=== PATIENT | female | born 2000 | race Caucasian/White ===

== ENCOUNTER → 2024-05-22 | Outpatient (CLI) | payer OTHER | END | disposition home or self-care (01) | LOC: LABWHC1 10:27 | PROVIDERS: ATTEND Obstetrics & Gynecology | DX: O20.0 Threatened abortion (principal); Z3A.00 Weeks of gestation of pregnancy not specified | CPT/HCPCS: 36415; 84702 ==

== ENCOUNTER 2024-07-27 15:16 | Observation (INO) | payer OTHER ==
--- NOTE | 2024-07-27 16:05 | ED ---
Female Urogenital HPI - General Chief complaint: Vaginal Bleeding Stated complaint: 17wks preg,vag bleeding Time Seen by Provider: 07/27/24 15:17 Source: EMS Mode of arrival: EMS Limitations: no limitations - History of Present Illness Initial comments: Patient is a 24 y/o female , 17 week gestation presenting for vaginal bleeding x 1 hour. Patient states that she was at home and she felt a gush of fluid. By the time she came to emergency room and she has been through 1 pad over the course of an hour. No passage of clots. No history of bleeding disorders. Prior to or delivery. Via . Patient did have spotting at 4 weeks with this otherwise no complications today. Sees Dr. Estrella. Denies lightheadedness, dizziness, shortness of breath, chest pain. Endorses mild lower pelvic cramping. No fevers. No history of STIs. Patient is RHD negative and did require RhoGAM injection at 4 weeks . - Related Data Home Medications Medication Instructions Recorded Confirmed Acetaminophen Tab [Tylenol Tab] 500 mg PO Q6HR PRN 07/27/24 07/27/24 Wlg-Qsco-Kolum Acid 1 cap PO DAILY 07/27/24 07/27/24 [-U Capsule (formulary)] Allergies Allergy/AdvReac Type Severity Reaction Status Date / Time No Known Allergies Allergy Verified 07/27/24 16:48 Review of Systems ROS Statement: Those systems with pertinent positive or pertinent negative responses have been documented in the HPI. Past Medical History Past Medical History: No Reported History History of Any Multi-Drug Resistant Organisms: None Reported Past Surgical History: No Surgical Hx Reported Past Psychological History: No Psychological Hx Reported Past Alcohol Use History: None Reported Past Drug Use History: None Reported - Past Family History Father Family Medical History: Hypertension Brother(s) Family Medical History: Seizure Disorder Additional Family Medical History / Comment(s): Epilepsy General Exam - General Exam Comments Initial Comments: PE: CONSTITUTIONAL: No apparent distress, well appearing SKIN: Warm, dry, no jaundice, hives or petechiae EYES: Pupils are equally round, extraocular movements intact without nystagmus, clear conjunctiva, no conjunctival pallor non-icteric sclera HENT: Normocephalic, atraumatic, moist mucus membranes, oropharynx clear without exudates NECK: , Full range of motion, normal appearance PULMONARY: Clear to auscultation without wheezes, rhonchi, or rales, normal excursion, no accessory muscle use and no stridor CARDIOVASCULAR: Regular rate, rhythm, normal S1 and S2. No appreciated murmurs, rubs or gallops. Strong radial pulses with intact distal perfusion. No lower extremity edema GASTROINTESTINAL: Soft, non-tender, non-distended, no palpable masses, no rebound or guarding. No hepatosplenomegaly GENITOURINARY: Pelvic exam performed withBriana RN cane splicer. Sterile speculum inserted, cervical os closed, approximately 1 tablespoon of blood and speculum MUSCULOSKELETAL: Extremities have no gross deformity, no edema, redness, or swelling. No calf swelling ot TTP. NEUROLOGIC:_a/o x 3, GCS 15, normal mentation and speech. Moves all extremities x 4 without motor or sensory deficit PSYCHIATRIC:_normal mood and affect, thought process is clear and linear Limitations: no limitations Course Vital Signs 07/27/24 07/27/24 15:17 21:00 Temperature 97.0 F L 97.6 F Pulse Rate 81 82 Respiratory 18 18 Rate Blood Pressure 133/70 96/84 O2 Sat by Pulse 100 99 Oximetry Medical Decision Making - Medical Decision Making Was pt. sent in by a medical professional or institution (, PA, STEAM FINISHER, urgent care, hospital, or group home...) When possible be specific @ -No Did you speak to anyone other than the patient for history (EMS, parent, family, police, friend...)? What history was obtained from this source @ -No Did you review nursing and triage notes (agree or disagree)? Why? @ -Triage note states patient comes to ED via EMS for bleeding during , patient 17 weeks intrauterine on RhoGAM injections for bleeding noted at 4 weeks gestation, patient reports pink-red blood after going to the bathroom states she can feel blood currently coming out of her vagina, reports cramping with just began Were old charts reviewed (outside hosp., previous admission, EMS record, old EKG, old radiological studies, urgent care reports/EKG's, group home records)? Report findings @ -No recent visits to review Differential Diagnosis (chest pain, altered mental status, abdominal pain women, abdominal pain men, vaginal bleeding, weakness, fever, dyspnea, syncope, headache, dizziness, GI bleed, back pain, seizure, CVA, palpatations, mental hea lth, musculoskeletal)? @Differential diagnosis remains broad however top considerations include spo ntaneous , threatened , molar , bloody show, incompetent cervix, placenta previa, dysfunctional uterine bleeding, this is an all-inclusive list. Patient exam is not consistent with placental abruption, patient has known intrauterine so very low suspicion for ectopic U/S interpreted by me (1pt. min.). @ -Single intrauterine present What testing was considered but not performed or refused? (CT, X-rays, U/S, labs)? Why? @ -None What meds were considered but not given or refused? Why? @ -None Did you discuss the management of the patient with other professionals (professionals i.e. , PA, STEAM FINISHER, lab, RT, psych nurse, drug abuse social worker, bacteriologist industrial, teacher, psychological operations officer, bilingual patient support caseworker)? Give summary @ Discussed with Dr. Oneill, Ob-Warping Mill Operator, regarding admission Was smoking cessation discussed for >3mins.? @ -No Was critical care preformed (if so, how long)? @ -No Were there social determinants of health that impacted care today? How? (Homelessness, low income, unemployed, alcoholism, drug addiction, transportation, low edu. Level, literacy, decrease access to med. care, alf, rehab)? @ -No Was there de-escalation of care discussed even if they declined (Discuss DNR or withdrawal of care, Hospice)? @ -No What co-morbidities impacted this encounter? (DM, HTN, Smoking, COPD, CAD, Cancer, CVA, ARF, Chemo, Hep., AIDS, mental health diagnosis, sleep apnea, morbid obesity)? @ -None Was patient admitted / discharged? Hospital course, mention meds given and route, prescriptions, significant lab abnormalities, going to OR and other pertinent info. @ -Hospital course Patient is a pleasant 24-year-old female 17 weeks gestation presenting for vaginal bleeding x 1 hour. Rh-. Pt well appearing on assessment, vitals stable, abdomen soft and nontender, no masses, pelvic exam performed with sterile speculum, showed closed cervical os, approx 1 tbsp dark red blood in speculum. Plan for US, labs, likely rhogam, tylenol. US with single live intrauterine , no placenta previa. Hgb wnl. On reassessment patient comfortable appearing, did pass an additional 1/2 to 1 cup of dark red blood. Updated patient to results and anticpated admission for observation due to persistent bleeding. Pt agreeable with POC. Discussed with Dr. Oneill, kindly accepts for admission, Admission orders placed. Pt admitted in stable condition. Additionally, Rh-, Rhogam ordered. Undiagnosed new problem with uncertain prognosis? @ -No Drug Therapy requiring intensive monitoring for toxicity (Heparin, Nitro, Insulin, Cardizem)? @ -No Were any procedures done? @ -No Diagnosis/symptom? @ Threatened Acute, or Chronic, or Acute on Chronic? @ -Acute Uncomplicated (without systemic symptoms) or Complicated (systemic symptoms)? @ -Complicated Side effects of treatment? @ -No Exacerbation, Progression, or Severe Exacerbation? @ -No Poses a threat to life or bodily function? How? (Chest pain, USA, NM, pneumonia, PE, COPD, DKA, ARF, appy, cholecystitis, CVA, Diverticulitis, Homicidal, Suicidal, threat to staff... and all critical care pts) @ -Potentially, if bleeding continues unmonitored or unaddressed could lead to hemorrhage and shock - Lab Data Result diagrams: 07/28/24 05:00 07/27/24 16:10 Lab Results 07/27/24 07/27/24 07/27/24 Range/Units 16:10 16:10 16:10 WBC 9.7 (3.8-10.6) k/uL RBC 4.33 (3.80-5.40) m/uL Hgb 12.3 (11.4-16.0) gm/dL Hct 35.4 (34.0-46.0) % MCV 81.9 (80.0-100.0) fL MCH 28.5 (25.0-35.0) pg MCHC 34.8 (31.0-37.0) g/dL RDW 13.9 (11.5-15.5) % Plt Count 275 (150-450) k/uL MPV 8.2 Neutrophils % 72 % Lymphocytes % 21 % Monocytes % 4 % Eosinophils % 2 % Basophils % 0 % Neutrophils # 6.9 (1.3-7.7) k/uL Lymphocytes # 2.0 (1.0-4.8) k/uL Monocytes # 0.4 (0-1.0) k/uL Eosinophils # 0.2 (0-0.7) k/uL Basophils # 0.0 (0-0.2) k/uL PT 10.5 (10.0-12.5) sec INR 0.9 (<1.2) APTT 28.5 (22.0-30.0) sec Sodium (137-145) mmol/L Potassium (3.5-5.1) mmol/L Chloride (98-107) mmol/L Carbon Dioxide (22-30) mmol/L Anion Gap mmol/L BUN (7-17) mg/dL Creatinine (0.52-1.04) mg/dL Est GFR (CKD-EPI)AfAm (>60 ml/min/1.73 sqM) Est GFR (CKD-EPI)NonAf (>60 ml/min/1.73 sqM) Glucose (74-99) mg/dL Calcium (8.4-10.2) mg/dL Total Bilirubin (0.2-1.3) mg/dL AST (14-36) U/L ALT (4-34) U/L Alkaline Phosphatase (38-126) U/L Total Protein (6.3-8.2) g/dL Albumin (3.5-5.0) g/dL HCG, Quant mIU/mL Urine Color Urine RBC >182 H (0-5) /hpf Urine WBC 55 H (0-5) /hpf Ur Squamous Epith Cells 6 H (0-4) /hpf Blood Type Blood Type Confirm Blood Type Recheck Bld Type Recheck Status Antibody Screen Spec Expiration Date 07/27/24 07/27/24 07/27/24 Range/Units 16:10 16:10 16:20 WBC (3.8-10.6) k/uL RBC (3.80-5.40) m/uL Hgb (11.4-16.0) gm/dL Hct (34.0-46.0) % MCV (80.0-100.0) fL MCH (25.0-35.0) pg MCHC (31.0-37.0) g/dL RDW (11.5-15.5) % Plt Count (150-450) k/uL MPV Neutrophils % % Lymphocytes % % Monocytes % % Eosinophils % % Basophils % % Neutrophils # (1.3-7.7) k/uL Lymphocytes # (1.0-4.8) k/uL Monocytes # (0-1.0) k/uL Eosinophils # (0-0.7) k/uL Basophils # (0-0.2) k/uL PT (10.0-12.5) sec INR (<1.2) APTT (22.0-30.0) sec Sodium 135 L (137-145) mmol/L Potassium 3.7 (3.5-5.1) mmol/L Chloride 106 (98-107) mmol/L Carbon Dioxide 18 L (22-30) mmol/L Anion Gap 11 mmol/L BUN 7 (7-17) mg/dL Creatinine 0.49 L (0.52-1.04) mg/dL Est GFR (CKD-EPI)AfAm >90 (>60 ml/min/1.73 sqM) Est GFR (CKD-EPI)NonAf >90 (>60 ml/min/1.73 sqM) Glucose 93 (74-99) mg/dL Calcium 9.4 (8.4-10.2) mg/dL Total Bilirubin 0.4 (0.2-1.3) mg/dL AST 13 L (14-36) U/L ALT 9 (4-34) U/L Alkaline Phosphatase 79 (38-126) U/L Total Protein 6.4 (6.3-8.2) g/dL Albumin 3.6 (3.5-5.0) g/dL HCG, Quant 76385.3 mIU/mL Urine Color Urine RBC (0-5) /hpf Urine WBC (0-5) /hpf Ur Squamous Epith Cells (0-4) /hpf Blood Type O Negative Blood Type Confirm O Negative Blood Type Recheck No Previous Record Bld Type Recheck Status CABO Indicated Antibody Screen NEGATIVE Spec Expiration Date 07/30/20242309 Disposition Clinical Impression: Threatened Disposition: ADMITTED IP TO THIS [facility] Condition: Good
[2024-07-27] MEDS: ACETAMINOPHEN TAB 500 MG TAB PO STA (16:15)
[2024-07-27] MEDS: SODIUM CHLORIDE 0.9% 1,000 ML IV ONE (16:15)
[2024-07-27 16:22] LABS: Basophils % (A) 0 %; Eosinophils # (A) 0.2 k/uL (0-0.7); Eosinophils % (A) 2 %; HCT 35.4 % (34.0-46.0); HGB 12.3 gm/dL (11.4-16.0); Lymphocytes % (A) 21 %; MCH 28.5 pg (25.0-35.0); MCHC 34.8 g/dL (31.0-37.0); MCV 81.9 fL (80.0-100.0); Mean Platelet Volume 8.2; Monocytes # (A) 0.4 k/uL (0-1.0); Monocytes % (A) 4 %; Neutrophils # (A) 6.9 k/uL (1.3-7.7); Neutrophils % (A) 72 %; Platelet Count 275 k/uL (150-450); RBC 4.33 m/uL (3.80-5.40); RDW 13.9 % (11.5-15.5); WBC 9.7 k/uL (3.8-10.6)
[2024-07-27 16:37] LABS: INR 0.9 (<1.2); Partial Thromboplastin Time 28.5 sec (22.0-30.0); Prothrombin Time 10.5 sec (10.0-12.5)
[2024-07-27 16:51] LABS: ALT 9 U/L (4-34); AST 13 U/L (14-36); African American GFR (CKD) >90 (>60 ml/min/1.73 sqM); Albumin 3.6 g/dL (3.5-5.0); Alkaline Phosphatase 79 U/L (38-126); Anion Gap 11 mmol/L; Blood Urea Nitrogen 7 mg/dL (7-17); Calcium 9.4 mg/dL (8.4-10.2); Carbon Dioxide 18 mmol/L (22-30); Chloride 106 mmol/L (98-107); Glucose 93 mg/dL (74-99); Non-African American GFR(CKD) >90 (>60 ml/min/1.73 sqM); Potassium 3.7 mmol/L (3.5-5.1); Sodium 135 mmol/L (137-145); Total Bilirubin 0.4 mg/dL (0.2-1.3); Total Protein 6.4 g/dL (6.3-8.2)
--- NOTE | 2024-07-27 17:01 | US ---
EXAMINATION TYPE: US OB >= 14 wk fetus DATE OF EXAM: 07/27/2024 COMPARISON: None CLINICAL INDICATION: Female, 24 years old with history of vaginal bleeding; vag bleeding x 2 hrs TECHNIQUE: Transabdominal (TA) GESTATIONAL AGE / DATING Physician Established: Not yet established Dates by LMP: (15 weeks/4 days) EDC: 01/14/25 Dates by First Scan: outside imaging Dates by Current Scan: (16 weeks/ 3 days) EDC: 01/08/25 Beta HCG (if available): Not available at this time SURVEY IUP: Single PLACENTA: Fundal PREVIA: No Previa HEATH: 8.3 cm Normal CERVICAL LENGTH (transabdominal: norm > 3.0cm): 3.5 cm BIOMETRY PRESENTATION: Breech LIE: Oblique BPD: 3.5 cm 16 weeks / 5 days HC: 11.7 cm 16 weeks / 0 days AC: 12.2 cm 17 weeks / 6 days FL: 1.8 cm 15 weeks / 1 days ESTIMATED WEIGHT IN GRAMS: 158.4 grams ESTIMATED WEIGHT IN LBS/OZ: 0 lbs. 6 oz. WEIGHT PERCENTAGE BASED ON ESTABLISHED DATES: 93.5% HC/AC: .99 Abnormal FL/AC: 14.4 out of range HEART RATE: 155 bpm RHYTHM: Normal biometry very limited by positioing and large maternal body habitus IMPRESSION: 1. Single viable intrauterine as described above. 2. No placenta previa. 3. presentation is breech. 4. This examination is not performed for evaluation of potential anomalies. anomalies can not be excluded with this technique.
[2024-07-27 17:35] LABS: HCG,Quantitative Serum 20782.3 mIU/mL
[2024-07-27 17:46] LABS: RBC,Urine >182 /hpf (0-5); Squamous Epithelial Cell,Urine 6 /hpf (0-4); WBC,Urine 55 /hpf (0-5)
[2024-07-27] MEDS: Rhogam IMMUNE GLOBULIN 1,500 UNIT/1 ML IM ONE (20:15)
[2024-07-27 21:31] VITALS: RESP 16
[2024-07-27] MEDS: DEXTROSE 5%-0.45% NACL 1,000 ML IV ONE (21:59)
[2024-07-27] MEDS: LACTATED RINGERS 1,000 ML IV SCH (22:00)
[2024-07-27] MEDS: ACETAMINOPHEN TAB 325 MG TAB PO PRN (22:12)
[2024-07-28 04:14] VITALS: BP 110/72; PULSE 93; TEMP 97.6
[2024-07-28 05:42] LABS: Basophils % (A) 0 %; Eosinophils # (A) 0.3 k/uL (0-0.7); Eosinophils % (A) 3 %; HCT 33.1 % (34.0-46.0); HGB 10.9 gm/dL (11.4-16.0); Lymphocytes # (A) 2.5 k/uL (1.0-4.8); Lymphocytes % (A) 30 %; MCH 27.9 pg (25.0-35.0); MCHC 33.1 g/dL (31.0-37.0); MCV 84.4 fL (80.0-100.0); Mean Platelet Volume 7.6; Monocytes # (A) 0.3 k/uL (0-1.0); Monocytes % (A) 4 %; Neutrophils # (A) 5.1 k/uL (1.3-7.7); Neutrophils % (A) 61 %; Platelet Count 251 k/uL (150-450); RBC 3.92 m/uL (3.80-5.40); RDW 13.9 % (11.5-15.5); WBC 8.3 k/uL (3.8-10.6)
[2024-07-28] MEDS: PRENATAL VIT-IRON-FOLIC ACID 1 EACH TABLET PO SCH (08:15)
--- NOTE | 2024-07-28 11:27 | P.HPOB ---
History of Present Illness H&P Date: 07/28/24 Chief Complaint: Vaginal bleeding in Ms. Gallagher is a 24 year old at 15 weeks and 5 days with EDC of 01/14/2025 who presents with an episode of heavy vaginal bleeding. This is her second bleed during the . While in the emergency room she saturated multiple pads. Her vitals were noted to be stable and her hemoglobin was in the normal range at 12.3. She is known to be Rh negative and her antibody screen yesterday was negative. She was given a dose of rhogam while in the ER. Cervix was closed per Dr. Anders's exam in the ER. Pelvic ultrasound was negative for retroplacental clot and for placenta previa. There was a single live fetus noted, measuring large (~17 weeks). However, the patient continued to bleed so the decision was made to observe her overnight. Past Medical History Past Medical History: No Reported History History of Any Multi-Drug Resistant Organisms: None Reported Past Surgical History: Section, Cholecystectomy Additional Past Surgical History / Comment(s): Gallbladder 03/2018, 01/2018 and 08/2021 Past Anesthesia/Blood Transfusion Reactions: No Reported Reaction Past Psychological History: No Psychological Hx Reported Smoking Status: Never smoker Past Alcohol Use History: None Reported Past Drug Use History: Marijuana Additional Drug Use History / Comment(s): Once a day - Past Family History Father Family Medical History: Hypertension Brother(s) Family Medical History: Seizure Disorder Additional Family Medical History / Comment(s): Epilepsy Medications and Allergies Home Medications Medication Instructions Recorded Confirmed Type Acetaminophen Tab [Tylenol Tab] 500 mg PO Q6HR PRN 07/27/24 07/27/24 History Eoh-Tfit-Qbarr Acid 1 cap PO DAILY 07/27/24 07/27/24 History [-U Capsule (formulary)] Allergies Allergy/AdvReac Type Severity Reaction Status Date / Time No Known Allergies Allergy Verified 07/27/24 16:48 Exam Vital Signs Temp Pulse Pulse Resp BP BP Pulse Ox 07/28/24 04:13 97.6 F 93 16 110/72 100 07/27/24 21:16 98.6 F 76 16 104/69 96 07/27/24 21:00 97.6 F 82 18 96/84 99 07/27/24 15:17 97.0 F L 81 18 133/70 100 Intake and Output 07/27/24 07/28/24 07/28/24 22:59 06:59 14:59 Output Total 2 Balance -2 Output: Output, Quantitative 2 Blood Loss Other: # Voids 1 2 Weight 104.78 kg Focused physical exam is performed. This is a healthy-appearing in no apparent distress. Breathing is non-labored. Abdomen is gravid and non-tender. Cervical exam is deferred, closed per Dr. Anders. Extremities non-tender and non-edematous. +FHTs on dopplers and by ultrasound. Results Result Diagrams: 07/28/24 05:00 07/27/24 16:10 Abnormal Lab Results - Last 24 Hours (Table) 07/27/24 07/27/24 07/28/24 Range/Units 16:10 16:10 05:00 Hgb 10.9 L (11.4-16.0) gm/dL Hct 33.1 L (34.0-46.0) % Sodium 135 L (137-145) mmol/L Carbon Dioxide 18 L (22-30) mmol/L Creatinine 0.49 L (0.52-1.04) mg/dL AST 13 L (14-36) U/L Urine RBC >182 H (0-5) /hpf Urine WBC 55 H (0-5) /hpf Ur Squamous Epith Cells 6 H (0-4) /hpf Assessment and Plan Assessment: 24 year old at 15 weeks and 5 days with second episode of vaginal bleeding in Plan: Admit for observation overnight. No previa or subchorionic hematoma noted on US. Trend Hgb.
--- NOTE | 2024-07-28 11:30 | P.DS ---
Providers Date of admission: 07/27/24 17:28 Expected date of discharge: 07/28/24 Attending physician: Michelle Oneill MD Primary care physician: Katherine Suresh DO Hospital Course: Ms. Gallagher is a 24 year old at 15 weeks and 5 days with EDC of 01/14/2025 who presents with an episode of heavy vaginal bleeding. This is her second bleed during the . While in the emergency room she saturated multiple pads. Her vitals were noted to be stable and her hemoglobin was in the normal range at 12.3. She is known to be Rh negative and her antibody screen yesterday was negative. She was given a dose of rhogam while in the ER. Cervix was closed per Dr. Anders's exam in the ER. Pelvic ultrasound was negative for retroplacental clot and for placenta previa. There was a single live fetus noted, measuring large (~17 weeks). However, the patient continued to bleed so the decision was made to observe her overnight. Bleeding completely stopped overnight. Vital signs were stable. Repeat hemoglobin in the morning was 10.9, which is felt to be mostly dilutional. The patient will be discharged home today on pelvic rest. She has a follow up appointment Monday07/30/[address] Estrella. Assessment: 24 year old at 15 weeks and 5 days with second bleed in Patient Condition at Discharge: Good Plan - Discharge Summary New Discharge Prescriptions: No Action Acetaminophen Tab [Tylenol Tab] 500 mg PO Q6HR PRN PRN Reason: Pain Or Fever > 100.5 Ico-Vqdu-Oluqy Acid [-U Capsule (formulary)] 1 cap PO DAILY Discharge Medication List Acetaminophen Tab [Tylenol Tab] 500 mg PO Q6HR PRN 07/27/24 [History] Tuo-Zyqa-Daeaj Acid [-U Capsule (formulary)] 1 cap PO DAILY 07/27/24 [History] Follow up Appointment(s)/Referral(s): Katherine Suresh DO [Primary Care Provider] - 1-2 days
== END 2024-07-28 11:43 | disposition home or self-care (01) ==
LOC: SUPCPDRO 15:16 → EC 15:16 → 4FBP 17:28
PROVIDERS: ADMIT Obstetrics & Gynecology; ATTEND Obstetrics & Gynecology
DX: O20.9 Hemorrhage in early pregnancy, unspecified (principal); Z3A.17 17 weeks gestation of pregnancy
CPT/HCPCS: 36415; 76805; 80053; 81001; 84702; 85025; 85610; 85730; 86850; 86900; 86901; 87086; 96360; 96372; 99285

== ENCOUNTER 2024-12-08 23:23 | Outpatient (CLI) | payer OTHER ==
[2024-12-09 00:03] LABS: Appearance,Urine Clear (Clear); Bilirubin,Urine Negative (Negative); Blood,Urine Negative (Negative); Color,Urine Colorless; Glucose,Urine (UA) Negative (Negative); Ketones,Urine Negative (Negative); Leukocyte Esterase,Urine Negative (Negative); Nitrite,Urine Negative (Negative); PH, Urine 6.5 (5.0-8.0); Protein,Urine Negative (Negative); Specific Gravity,Urine 1.005 (1.001-1.035); Urobilinogen,Urine <2.0 mg/dL (<2.0)
[2024-12-09 00:10] VITALS: BP 133/64; PULSE 103; RESP 16; TEMP 96.7
== END 2024-12-09 00:05 | disposition home or self-care (01) ==
LOC: FBPOP 23:23
PROVIDERS: ATTEND Obstetrics & Gynecology
DX: Z53.9 Procedure and treatment not carried out, unspecified reason (principal)
CPT/HCPCS: 59025; 81003; G0463; 99213

== ENCOUNTER 2024-12-19 13:41 | Outpatient (CLI) | payer OTHER ==
[2024-12-19 13:58] LABS: Appearance,Urine Clear (Clear); Bilirubin,Urine Negative (Negative); Blood,Urine Negative (Negative); Color,Urine Colorless; Glucose,Urine (UA) Negative (Negative); Ketones,Urine Trace (Negative); Leukocyte Esterase,Urine Negative (Negative); Nitrite,Urine Negative (Negative); PH, Urine 6.5 (5.0-8.0); Protein,Urine Negative (Negative); Specific Gravity,Urine 1.008 (1.001-1.035); Urobilinogen,Urine <2.0 mg/dL (<2.0)
[2024-12-19 14:25] VITALS: BP 120/68; PULSE 108; RESP 18; TEMP 97.9
== END 2024-12-19 14:26 | disposition home or self-care (01) ==
LOC: FBPOP 13:41
PROVIDERS: ATTEND Obstetrics & Gynecology
DX: Z53.9 Procedure and treatment not carried out, unspecified reason (principal)
CPT/HCPCS: 59025; 81003; G0463; 99213

== ENCOUNTER 2025-01-07 09:38 | Inpatient (IN) | payer OTHER ==
[2025-01-07] MEDS ORDERED: TRANEXAMIC 1,000 MG/100ML-NACL 1,000 MG in EMPTY BAG 1 BAG IV PRN (09:53)
[2025-01-07] MEDS ORDERED: OXYTOCIN 10 UNIT/ML 1 ML VIAL IM PRN (09:53)
[2025-01-07] MEDS ORDERED: METHYLERGONOVINE 0.2 MG/ML 1 ML AMP IM PRN (09:53)
[2025-01-07] MEDS ORDERED: miSOPROStoL 200 MCG TAB PO PRN (09:53)
[2025-01-07] MEDS ORDERED: CARBOPROST TROMETHAMINE 250 MCG/ML 1 ML AMP IM PRN (09:53)
[2025-01-07] MEDS: LACTATED RINGERS 1,000 ML IV ONE (10:10)
[2025-01-07 10:22] LABS: Basophils % (A) 0 %; Eosinophils # (A) 0.2 k/uL (0-0.7); Eosinophils % (A) 1 %; HCT 34.1 % (34.0-46.0); HGB 10.8 gm/dL (11.4-16.0); Hypochromasia Moderate; Lymphocytes # (A) 2.7 k/uL (1.0-4.8); Lymphocytes % (A) 21 %; MCH 24.2 pg (25.0-35.0); MCHC 31.7 g/dL (31.0-37.0); MCV 76.4 fL (80.0-100.0); Mean Platelet Volume 7.4; Microcytosis Slight; Monocytes # (A) 0.6 k/uL (0-1.0); Monocytes % (A) 5 %; Neutrophils % (A) 70 %; Platelet Count 386 k/uL (150-450); RBC 4.47 m/uL (3.80-5.40); WBC 12.9 k/uL (3.8-10.6)
[2025-01-07] MEDS: CITRIC ACID-SODIUM CITRATE 15 ML CUP PO ONE (11:34)
[2025-01-07 11:44] LABS: Amphetamine Screen,Urine Not Detected (NotDetected); Barbiturate Screen,Urine Not Detected (NotDetected); Benzodiazepines Screen,Urine Not Detected (NotDetected); Cocaine Screen,Urine Not Detected (NotDetected); Methadone Screen, Urine Not Detected (NotDetected); Opiate Screen,Urine Not Detected (NotDetected); Oxycodone Screen, Urine Not Detected (NotDetected); Phencyclidine Screen,Urine Not Detected (NotDetected); Tricyclic Antidepressant,Urine Not Detected (NotDetected); Urn Cannabinoid Scrn Detected (NotDetected)
[2025-01-07] MEDS ORDERED: MORPHINE SULFATE (PF) 0.3 MG/0.3 ML SYR ONE (12:25)
[2025-01-07] MEDS ORDERED: NALBUPHINE (ANES) 10 MG/ML - 1 ML AMP ONE (12:25)
[2025-01-07] MEDS ORDERED: OXYTOCIN 30 UNITS/500 ML NS BAG IV ONE (12:25)
[2025-01-07] MEDS ORDERED: PHENYLEPHRINE-0.9% NACL SYG 1,000 MCG/10 ML SYRINGE ONE (12:25)
[2025-01-07] MEDS ORDERED: KETOROLAC 30 MG/ML 1 ML VIAL ONE (12:25)
[2025-01-07] MEDS ORDERED: ONDANSETRON 4 MG/2 ML VIAL ONE (12:25)
[2025-01-07] MEDS ORDERED: diphenhydrAMINE 50 MG/ML 1 ML VIAL IVP PRN (14:24)
[2025-01-07] MEDS ORDERED: NALOXONE 0.4 MG/ML 1 ML VIAL IV PRN (14:24)
[2025-01-07] MEDS ORDERED: ZOLPIDEM 5 MG TAB PO PRN (14:24)
[2025-01-07] MEDS ORDERED: ONDANSETRON 4 MG/2 ML VIAL IVP PRN (14:24)
[2025-01-07] MEDS ORDERED: diphenhydrAMINE 25 MG CAP PO PRN (14:24)
[2025-01-07] MEDS ORDERED: SIMETHICONE 80 MG CHEWABLE PO PRN (14:24)
[2025-01-07] MEDS ORDERED: METOCLOPRAMIDE 5 MG/ML 2 ML VIAL IVP PRN (14:24)
[2025-01-07] MEDS ORDERED: OXYTOCIN 30 UNITS/500 ML NS 30 UNIT in SALINE 1 500ML.BAG IV SCH (14:30)
[2025-01-07] MEDS: diphenhydrAMINE 50 MG/ML 1 ML VIAL IVP PRN (14:34)
[2025-01-07] MEDS: LACTATED RINGERS 1,000 ML IV SCH ×2 (14:38→15:08)
[2025-01-07] MEDS: ACETAMINOPHEN TAB 500 MG TAB PO SCH (15:10)
[2025-01-07] MEDS: Rhogam IMMUNE GLOBULIN 1,500 UNIT/1 ML IM ONE (16:16)
[2025-01-07] MEDS: SENNOSIDES-DOCUSATE SODIUM 1 EACH TAB PO SCH (19:36)
[2025-01-07] MEDS: KETOROLAC 15 MG/ML 1 ML VIAL IVP SCH (19:36)
[2025-01-08] MEDS: diphenhydrAMINE 50 MG CAP PO PRN (00:07)
[2025-01-08] MEDS: IBUPROFEN 800 MG TAB PO SCH (04:41)
[2025-01-08 06:38] LABS: Basophils % (A) 0 %; Eosinophils # (A) 0.1 k/uL (0-0.7); Eosinophils % (A) 1 %; HCT 27.3 % (34.0-46.0); Hypochromasia Moderate; Lymphocytes # (A) 2.2 k/uL (1.0-4.8); Lymphocytes % (A) 17 %; MCH 24.6 pg (25.0-35.0); MCV 76.9 fL (80.0-100.0); Mean Platelet Volume 6.9; Microcytosis Slight; Monocytes # (A) 0.9 k/uL (0-1.0); Monocytes % (A) 7 %; Neutrophils # (A) 9.7 k/uL (1.3-7.7); Neutrophils % (A) 74 %; Platelet Count 312 k/uL (150-450); RBC 3.54 m/uL (3.80-5.40); RDW 15.3 % (11.5-15.5); WBC 13.2 k/uL (3.8-10.6)
[2025-01-08 06:51] LABS: HGB 8.7 gm/dL (11.4-16.0)
--- NOTE | 2025-01-08 08:09 | P.PN ---
Progress Note - Text Progress Note Date: 01/08/25 Postoperative day 1 status post section under spinal anesthesia, and intrathecal morphine given for postoperative analgesia, patient doing well, there is no anesthesia related complications, Patient had no headache, vital signs stable , Assessment and plan= postop day 1 status post , doing well there is no anesthesia related complication.
[2025-01-09 08:18] VITALS: BP 105/65; PULSE 87; RESP 16; TEMP 97.9
--- NOTE | 2025-01-09 08:55 | P.HPOB ---
History of Present Illness H&P Date: 01/07/25 Chief Complaint: repeat low transverse 24 year old G 3P2 presents at 39 weeks for repeat low-transverse with bilateral salpingectomy. Review of Systems All systems: negative Constitutional: Denies chills, Denies fever Eyes: denies blurred vision, denies pain Ears, nose, mouth and throat: Denies headache, Denies sore throat Cardiovascular: Denies chest pain, Denies shortness of breath Respiratory: Denies cough Gastrointestinal: Denies abdominal pain, Denies diarrhea, Denies nausea, Denies vomiting Genitourinary: Denies dysuria, Denies hematuria Musculoskeletal: Denies myalgias Integumentary: Denies pruritus, Denies rash Neurological: Denies numbness, Denies weakness Psychiatric: Denies anxiety, Denies depression Endocrine: Denies fatigue, Denies weight change Past Medical History Past Medical History: No Reported History History of Any Multi-Drug Resistant Organisms: None Reported Past Surgical History: No Surgical Hx Reported Additional Past Surgical History / Comment(s): Gallbladder 03/2018, 01/2018 and 08/2021 Past Anesthesia/Blood Transfusion Reactions: No Reported Reaction Past Psychological History: No Psychological Hx Reported Smoking Status: Never smoker Past Alcohol Use History: None Reported Past Drug Use History: Marijuana Additional Drug Use History / Comment(s): Not current - Past Family History Father Family Medical History: Hypertension Brother(s) Family Medical History: Seizure Disorder Additional Family Medical History / Comment(s): Epilepsy Medications and Allergies Home Medications Medication Instructions Recorded Confirmed Type Acetaminophen Tab [Tylenol Tab] 500 mg PO Q6HR PRN 07/27/24 01/07/25 History Mhw-Zgby-Hkbep Acid 1 cap PO DAILY 07/27/24 01/07/25 History [-U Capsule (formulary)] Allergies Allergy/AdvReac Type Severity Reaction Status Date / Time No Known Allergies Allergy Verified 01/07/25 09:53 Exam Osteopathic Statement: *. No significant issues noted on an osteopathic structural exam other than those noted in the History and Physical/Consult. Vital Signs Temp Pulse Resp BP BP Pulse Ox 01/09/25 08:13 97.9 F 87 16 105/65 99 01/09/25 00:00 98.1 F 84 19 96/60 99 01/08/25 20:25 97.8 F 95 18 104/68 99 01/08/25 15:13 98.3 F 98 17 101/65 98 01/08/25 12:00 97.5 F L 82 17 103/73 100 Intake and Output 01/08/25 01/09/25 01/09/25 22:59 06:59 14:59 Intake Total 480 Balance 480 Intake: Oral 480 Other: # Voids 1 Heart: Regular rate and rhythm Lungs: Clear to auscultation bilaterally Abdomen: Soft, nontender Extremities: Negative Homans sign Results Result Diagrams: 01/08/25 06:04 Assessment and Plan (1) Previous section Current Visit: Yes Status: Acute Code(s): Z98.891 - HISTORY OF UTERINE SCAR FROM PREVIOUS SURGERY SNOMED Code(s): 446075483 (2) Family planning Current Visit: Yes Status: Acute Code(s): Z30.09 - ENCOUNTER FOR OT GENERAL CNSL AND ADVICE ON CONTRACEPTION SNOMED Code(s): 570113597 Plan: 1. Repeat low-transverse with bilateral salpingectomy Consent: I have discussed the risks, benefits and alternative therapies for the above-mentioned procedure and for both sedation/analgesia as well as necessary blood product administration, if indicated, as they pertain to this patient. The patient has indicated understanding and acceptance of the risks and procedures discussed.
--- NOTE | 2025-01-09 08:57 | P.OP ---
Date of Procedure: 01/07/25 Preoperative Diagnosis: 1. at 39 weeks 2. previous 3. family planning Postoperative Diagnosis: same Procedure(s) Performed: Repeat low-transverse with bilateral salpingectomy Anesthesia: spinal Surgeon: Melina Estrella Chief Architect #1: Olive Lu Estimated Blood Loss (ml): 300 IV fluids (ml): 1,100 Urine output (ml): 400 Pathology: none sent Condition: stable Disposition: floor Operative Findings: Viable male, Apgars 9, 9, weight 9 pounds, normal uterus tubes and ovaries Description of Procedure: Patient was taken to the operating room where spinal anesthesia was found be adequate. She was prepped and draped in normal sterile fashion in dorsal supine position with a leftward tilt. Pfannenstiel skin incision was made the scalpel and carried through to the underlying layer of fascia with the scalpel. Fascia was incised in midline and carried bilaterally with the Michelle scissors. The superior aspect of the fascial incision was grasped with Andreas clamps elevated and the underlying rectus muscles dissected off with the Michelle's. Attention was then turned to inferior aspect of same incision which in a similar fashion was grasped tented up and the underlying rectus muscles dissected off with the Michelle's. The rectus muscles were the midline and the peritoneum was identified tented up and entered sharply with the scalpel. The incision was extended superiorly and inferiorly with good visualization of the bladder. The bladder blade was inserted and the vesicouterine peritoneum was incised the Metzenbaums then carried bilaterally and bladder flap created digitally. A low transverse incision was then made on the uterus with the scalpel. This was carried bilaterally and digital manner. 's head delivered atraumatically, nose and mouth bulb suctioned, cord clamped and cut, handed off to waiting nurses. Apgars 9,9, weight 9 lbs. Placenta delivered manually, intact with three-vessel cord. The uterus is exteriorized and cleared of all clots and debris. The uterine incision was closed with 0 Vicryl in a running locked fashion. Second layer of the same sutures used in imbricating fashion to obtain excellent hemostasis. Bladder flap was then reapproximated using 2-0 Vicryl in a running fashion. Both ovaries and tubes appeared normal. The uterus was placed back into the abdomen. The fascia was reapproximated using 0 Vicryl in a running fashion. The subcutaneous tissues closed with 3-0 Vicryl running fashion. The skin was closed sherry. Patient tolerated the procedure well, sponge and instrument counts were correct times 2 and she was taken to the recovery room in stable condition.
--- NOTE | 2025-01-09 08:58 | P.PNOBGPC ---
Subjective - Subjective Principal diagnosis: Status post repeat low-transverse with bilateral salpingectomy Interval history: Patient seen and examined on postop day 1. Doing well, denies nausea, vomiting, chest pain, shortness of breath or calf pain Patient reports: Reports appetite normal, Reports voiding normally, Reports pain well controlled, Reports ambulating normally [place]: doing well Objective - Vital Signs Latest vital signs: Vital Signs Temp Pulse Resp BP BP Pulse Ox 01/09/25 08:13 97.9 F 87 16 105/65 99 01/09/25 00:00 98.1 F 84 19 96/60 99 01/08/25 20:25 97.8 F 95 18 104/68 99 01/08/25 15:13 98.3 F 98 17 101/65 98 01/08/25 12:00 97.5 F L 82 17 103/73 100 Intake and Output 01/08/25 01/09/25 01/09/25 22:59 06:59 14:59 Intake Total 480 Balance 480 Intake: Oral 480 Other: # Voids 1 - Exam Lungs: bilateral: normal Chest: Normal S1, Normal S2 Extremities: Present: normal Abdomen: Present: normal appearance, soft. Absent: distention, tenderness Incision: Present: normal, dry, intact Uterus: Present: normal, firm Assessment and Plan (1) Previous section Current Visit: Yes Status: Resolved Code(s): Z98.891 - HISTORY OF UTERINE SCAR FROM PREVIOUS SURGERY SNOMED Code(s): 047786584 (2) Family planning Current Visit: Yes Status: Resolved Code(s): Z30.09 - ENCOUNTER FOR OT GENERAL CNSL AND ADVICE ON CONTRACEPTION SNOMED Code(s): 083893133 (3) Status post repeat low transverse section Current Visit: Yes Status: Acute Code(s): Z98.891 - HISTORY OF UTERINE SCAR FROM PREVIOUS SURGERY SNOMED Code(s): 010838806 (4) Status post bilateral salpingectomy Current Visit: Yes Status: Acute Code(s): Z90.79 - ACQUIRED ABSENCE OF OTHER GENITAL ORGAN(S) SNOMED Code(s): 056262110 Plan: 1. Continue postop care
--- NOTE | 2025-01-09 09:00 | P.DS ---
Providers Date of admission: 01/07/25 09:38 Expected date of discharge: 01/09/25 Attending physician: Melina Estrella Primary care physician: Stated None - Discharge Diagnosis(es) (1) Previous section Current Visit: Yes Status: Resolved (2) Family planning Current Visit: Yes Status: Resolved (3) Status post repeat low transverse section Current Visit: Yes Status: Acute (4) Status post bilateral salpingectomy Current Visit: Yes Status: Acute Hospital Course: Patient presented for repeat low-transverse with bilateral s alpingectomy. She denies nausea, vomiting, chest pain, shortness of breath or calf pain. Patient will be discharged home postoperative day #2 in stable condition to follow-up with me in 2 weeks. Plan - Discharge Summary New Discharge Prescriptions: No Action Acetaminophen Tab [Tylenol Tab] 500 mg PO Q6HR PRN PRN Reason: Pain Or Fever > 100.5 [id number] Acid [-U Capsule (formulary)] 1 cap PO DAILY Discharge Medication List Acetaminophen Tab [Tylenol Tab] 500 mg PO Q6HR PRN 07/27/24 [History] Ggs-Cetc-Ceule Acid [-U Capsule (formulary)] 1 cap PO DAILY 07/27/24 [History] Follow up Appointment(s)/Referral(s): Melina Estrella DO [Doctor of Osteopathic Medicine] - 01/21/25 11:15 am (Post Appointment 02-18-2025 at 11:30am) Discharge Disposition: HOME SELF-CARE
== END 2025-01-09 12:26 | disposition home or self-care (01) | DRG 539 ==
LOC: 4FBP 09:38
PROVIDERS: ADMIT Obstetrics & Gynecology; ATTEND Obstetrics & Gynecology
PROC: 0UB70ZZ Excision of Bilateral Fallopian Tubes, Open Approach (ICD-10-PCS; principal; 2025-01-07 12:25)
PROC: 10D00Z1 Extraction of Products of Conception, Low, Open Approach (ICD-10-PCS; principal; 2025-01-07 12:25)
DX: O34.211 Maternal care for low transverse scar from previous cesarean delivery (principal); Z30.2 Encounter for sterilization; O26.893 Other specified pregnancy related conditions, third trimester; Z67.41 Type O blood, Rh negative; Z3A.39 39 weeks gestation of pregnancy; Z37.0 Single live birth
CPT/HCPCS: 80306; 85025; 86850; 86900; 86901; 88302